=== PATIENT | female | born 1950 | race Caucasian/White ===

== ENCOUNTER 2019-03-16 11:42 | Emergency (ER) | payer OTHER ==
[2019-03-16 11:51] VITALS: BMI 31.1
--- NOTE | 2019-03-16 12:29 | PDOC ---
History of Present Illness - General Chief Complaint: Diarrhea Stated Complaint: DIARRHEA/KNEE PAIN Time Seen by Provider: 03/16/19 12:12 History Source: Patient, Family - History of Present Illness Travel History: Yes Initial Comments: 03/16/19 12:36 Chief complaint: Diarrhea and abdominal pain Patient is a 68-year-old female with history of hypertension, elevated cholesterol, elevated triglycerides, not on blood thinners who recently traveled to [facility] returned 3 days ago and has been having diarrhea since. Patient is having multiple watery stools daily. No fever, nausea or vomiting. Patient has abdominal pain but mostly when she goes to the bathroom. No dysuria. Patient is also having ongoing issue with right ankle pain and swelling for 3 months. Daughter states that it is worse. GENERAL/CONSTITUTIONAL: No fever, weakness. dizziness HEAD, EYES, EARS, NOSE AND THROAT: No change in vision. No ear pain or discharge. No sore throat. CARDIOVASCULAR: No chest pain RESPIRATORY: No shortness of breath or cough GASTROINTESTINAL: +pain, no: Nausea, vomiting, +diarrhea, no: Constipation. no rectal bleeding GENITOURINARY: No dysuria MUSCULOSKELETAL: No neck or back pain, + right ankle and leg swelling SKIN: No rash NEUROLOGIC: No headache, vertigo, loss of consciousness, or loss of sensation. GENERAL: The patient is awake, alert, and fully oriented, in no acute distress. HEAD: Normal with no signs of trauma. EYES: Pupils equal, round and reactive to light, sclera anicteric, conjunctiva clear. ENT: pharynx: no erythema, no exudate, uvula midline NECK: supple CHEST: clear, nontender, rr ABD: soft, generalized tenderness with minimal guarding BACK: no tenderness or signs of injury EXTREMITIES: Mild swelling to right ankle, + calf tenderness, no signs of infection, neurovascular intact. Minimally more swollen than left. Rest of extremities normal range of motion, no edema. NEUROLOGICAL: Normal speech, cranial nerves II through XII grossly intact, no gross focal abnormalities SKIN: Warm, Dry Past History - Past Medical History Allergies/Adverse Reactions: Allergies Allergy/AdvReac Type Severity Reaction Status Date / Time No Known Allergies Allergy Verified 03/16/19 11:51 Home Medications: Ambulatory Orders Amlodipine Besylate 5 mg PO DAILY 03/16/19 Aspirin [ASA -] 81 mg PO DAILY 03/16/19 Atorvastatin Ca [Lipitor] 40 mg PO HS 03/16/19 Diclofenac Sodium [Diclofenac Sodium ER] 100 mg PO DAILY 03/16/19 Furosemide 40 mg PO DAILY 03/16/19 Insulin (Novolog 70/30) [Novolog Mix 70/30 Vial] 36 units SQ AM 03/16/19 Insulin Detemir [Levemir Flextouch] 16 unit SQ HS 03/16/19 Lisinopril/Hydrochlorothiazide [Lisinopril-Hctz 20-12.5 mg Tab] 1 each PO BID Loratadine [Claritin] 10 mg PO DAILY PRN 03/16/19 Metoprolol Succinate 200 mg PO DAILY 03/16/19 Omeprazole 40 mg PO DAILY 03/16/19 Pioglitazone HCl 30 mg PO DAILY 03/16/19 COPD: No Diabetes: Yes HTN: Yes Hypercholesterolemia: Yes - Surgical History Cholecystectomy: Yes - Psycho Social/Smoking Cessation Hx Smoking History: Never smoked *Physical Exam - Vital Signs Last Vital Signs Temp Pulse Resp BP Pulse Ox 98 F 70 18 169/64 100 03/16/19 11:47 03/16/19 11:47 03/16/19 11:47 03/16/19 11:47 03/16/19 11:47 Heart Score/ECG Review - ECG Intrepretation Comment:: 03/16/19 17:54 17:09 normal sinus rhythm at 72, QTc 459, no ST elevations or depressions. ED Treatment Course - LABORATORY CBC & Chemistry Diagram: 03/16/19 13:03 03/16/19 13:03 Medical Decision Making - Medical Decision Making 03/16/19 12:39 68-year-old female with recent travel history to [facility] with 3 days of watery stool, no fever but has abdominal pain and had multiple episodes of stool even into this morning. No vomiting. Also complaining of right leg swelling. Patient will get labs, CT, fluids, ultrasound of leg and reassess. Stool Cultures will be sent. 03/16/19 16:52 Patient is feeling a little better, still having some pain but feels hungry. Patient is going to get CT. Patient has not had any diarrhea since coming to the ER, has been hydrated. Sodium was 129, potassium 5.3, rest of labs are normal. Discussed with Dr. Coats who agreed with plan and management we will Reassess after CT. us leg negative 03/16/19 17:55 Patient had chest pain after the contrast, is gone now, EKG shows no acute changes. Patient has no abdominal pain. Waiting for CT reading 03/16/19 18:[address] shows possible ileus, no other acute findings, para renal cyst and questionable dilated ureter, patient will be able to give urine, will check urine. Patient has no pain now is hungry. Patient was able to drink juice without any problems. Patient has no diarrhea in the ER since she got here 03/16/19 20:29 ua negative. will discharge on brat diet and to follow up Discharge - Discharge Information Problems reviewed: Yes Clinical Impression/Diagnosis: Abdominal pain Qualifiers: Abdominal location: generalized Qualified Code(s): R10.84 - Generalized abdominal pain Leg pain Qualifiers: Laterality: right Qualified Code(s): M79.604 - Pain in right leg Condition: Stable Disposition: HOME - Admission No - Follow up/Referral Referrals: Lalita Dodson MD [Primary Care Provider] - - Patient Discharge Instructions Patient Printed Discharge Instructions: Nausea and Vomiting-Adult Additional Instructions: clear fluids, if no vomiting eat brat diet. bananas, rice, applesauce and toast. no fruit or vegetables until diarrhea subsides. no greasy, fatty or spicy food return to er if fever, worse pain, vomiting or feeling sicker follow up with your doctor tomorrow - Post Discharge Activity
[2019-03-16] MEDS ORDERED: SODIUM CHLORIDE 1,000 ML IV STA (12:32)
[2019-03-16 13:25] LABS: BASO % 0.4 % (0-2.0); EOS % 0.3 % (0-4.5); HEMATOCRIT 31.8 % (32.4-45.2); HEMOGLOBIN 11.2 GM/dL (10.7-15.3); LYMPH % 16.7 % (8-40); MCH 32.7 pg (25.7-33.7); MCHC 35.2 g/dl (32.0-36.0); MEAN CELL VOLUME 92.7 fl (80-96); MEAN PLT VOLUME 8.4 fl (7.5-11.1); MONO % 9.2 % (3.8-10.2); NEUT % 73.4 % (42.8-82.8); PLATELET COUNT 230 K/MM3 (134-434); RBC 3.43 M/mm3 (3.60-5.2); RDW 13.4 % (11.6-15.6); WHITE BLOOD COUNT 5.8 K/mm3 (4.0-10.0)
[2019-03-16 14:38] LABS: ALBUMIN 3.9 g/dl (3.4-5.0); BILIRUBIN,TOTAL 0.9 mg/dL (0.2-1); BLOOD UREA NITROGEN 25.3 mg/dL (7-18); CALCIUM 9.4 mg/dL (8.5-10.1); POTASSIUM 5.3 mmol/L (3.5-5.1); TOT PROT 7.7 g/dl (6.4-8.2)
[2019-03-16] MEDS ORDERED: METOCLOPRAMIDE HCL INJECTION 10 MG/2 ML VIAL IVPUSH ONE (18:54)
[2019-03-16] MEDS ORDERED: METOCLOPRAMIDE HCL INJECTION 10 MG/2 ML VIAL ONE (19:29)
[2019-03-16 20:21] LABS: URINE APPEARANCE CLEAR; URINE BILIRUBIN NEGATIVE (NEGATIVE); URINE COLOR YELLOW; URINE GLUCOSE (UA) NEGATIVE (NEGATIVE); URINE KETONE NEGATIVE (NEGATIVE); URINE LEUK ESTERASE NEGATIVE (NEGATIVE); URINE NITRITE NEGATIVE (NEGATIVE); URINE PROTEIN NEGATIVE (NEGATIVE); URINE UROBILINOGEN 0.2 mg/dL (0.2-1.0)
[2019-03-16 21:06] VITALS: BP 146/68; PULSE 76; TEMP 98.6
--- NOTE | 2019-03-17 12:41 | EKG ---
Test Reason : Blood Pressure : / mmHG Vent. Rate : 072 BPM Atrial Rate : 072 BPM P-R Int : 180 ms QRS Dur : 088 ms QT Int : 420 ms P-R-T Axes : 056 -12 029 degrees QTc Int : 459 ms NORMAL SINUS RHYTHM SEPTAL INFARCT , AGE UNDETERMINED ABNORMAL ECG Confirmed by MD GLADYS, ANEL ([id number]) on 03/17/2019 12:40:53 PM Referred By: Confirmed By:ANEL GRAHAM MD
== END 2019-03-16 21:09 | disposition home or self-care (01) ==
LOC: JER 11:42
PROC: 3E0337Z Introduction of Electrolytic and Water Balance Substance into Peripheral Vein, Percutaneous Approach (ICD-10-PCS; principal; 2019-03-16)
PROC: 3E033GC Introduction of Other Therapeutic Substance into Peripheral Vein, Percutaneous Approach (ICD-10-PCS; 2019-03-16)
DX: R10.84 Generalized abdominal pain (principal); M79.604 Pain in right leg; I10 Essential (primary) hypertension; E78.5 Hyperlipidemia, unspecified; E78.00 Pure hypercholesterolemia, unspecified; E11.9 Type 2 diabetes mellitus without complications; Z79.4 Long term (current) use of insulin
CPT/HCPCS: 36415; 74177-TC; 80053; 81003; 85025; 87086; 93005; 93010; 93971-TC; 96361; 96374; 99284-25; J7030; Q9967